=== PATIENT | female | born 1995 | race Caucasian/White ===

== ENCOUNTER 2024-10-17 21:49 | Inpatient (IN) | payer BC, OTHER ==
[2024-10-17] MEDS ORDERED: hydrALAZINE 20 MG/ML VIAL SLOW IVP PRN ×2 (22:05→23:03)
[2024-10-17 22:57] LABS: Fetal Membranes Rupture RUPTURE DETECTED (No Rupture)
[2024-10-17] MEDS ORDERED: Ondansetron PF 4 MG/2 ML Vial IVP PRN (23:03)
[2024-10-17] MEDS ORDERED: Methylergonovine 0.2 MG/ML VIAL IM PRN (23:03)
[2024-10-17] MEDS ORDERED: Famotidine/PF 20 mg/2ml Vial SLOW IVP PRN (23:03)
[2024-10-17] MEDS ORDERED: Bicitra 30 ML UDCUP PO PRN (23:03)
[2024-10-17] MEDS ORDERED: Carboprost 250 MCG/ML AMP IM PRN (23:03)
[2024-10-17] MEDS ORDERED: Acetaminophen 500 MG TAB PO PRN (23:03)
[2024-10-17] MEDS ORDERED: Azithromycin 500 MG in Sodium Chloride 0.9% 250 ML 250 ML IVPB SCH (23:15)
[2024-10-17] MEDS ORDERED: Oxytocin 30 units/NS 500 ML 500 ML IV SCH (23:15)
[2024-10-17 23:51] LABS: Hematocrit 34.0 % (34.9-44.5); Hemoglobin 11.2 g/dL (12.0-15.5); Mean Corpuscular Hemoglobin 28.6 pg (27.0-33.0); Mean Corpuscular Volume 86.7 fL (81.6-98.3); Platelet Count 252 10x3/uL (150-450); Red Blood Cell (RBC) Count 3.92 10x6/uL (3.90-5.03); White Blood Cell (WBC) Count 9.95 10x3/uL (3.5-10.5)
[2024-10-18 00:26] LABS: Hep B Surf Ag - L&D Non-Reactive S/CO (NonReactive)
[2024-10-18] MEDS ORDERED: Meperidine HCl/PF 25 MG (1 mL) VIAL SLOW IVP PRN (00:53)
[2024-10-18] MEDS ORDERED: Ondansetron PF 4 MG/2 ML Vial IVP PRN ×3 (00:53→04:25)
[2024-10-18] MEDS ORDERED: diphenhydrAMINE 50 MG/ML VIAL IVP PRN (00:53)
[2024-10-18] MEDS ORDERED: Communication Order-Pharmacy FS SCH (01:00)
[2024-10-18] MEDS ORDERED: Ketorolac Tromethamine 30 MG (1 mL) VIAL IVP SCH (01:00)
[2024-10-18 01:12] LABS: Syphilis Antibody Index 3.89 S/CO (<1.00 Non-Reactive)
[2024-10-18] MEDS: Dexamethasone 10 MG/ML VIAL ONE (02:10)
[2024-10-18] MEDS: Phenylephrine 40 MG/NS 250 ML 250 ML ONE (02:10)
[2024-10-18] MEDS: Oxytocin 10 UNITS/ML VIAL ONE ×2 (02:10→02:11)
[2024-10-18] MEDS: Ondansetron PF 4 MG/2 ML Vial ONE (02:10)
[2024-10-18 02:12] LABS: Syphilis Titer 1:1 Titer (Nonreactive)
[2024-10-18] MEDS: Ketorolac Tromethamine 30 MG (1 mL) VIAL IVP PRN ×2 (03:04→11:37)
[2024-10-18] MEDS ORDERED: Lanolin Ointment 7 GM TUBE TOP PRN (04:25)
[2024-10-18] MEDS ORDERED: Boostrix 0.5 ML (Tdap) VIAL (>/=7 yrs of age) IM ONE (04:25)
[2024-10-18] MEDS ORDERED: Methylergonovine 0.2 MG/ML VIAL IM PRN (04:25)
[2024-10-18] MEDS ORDERED: hydrALAZINE 20 MG/ML VIAL SLOW IVP PRN (04:25)
[2024-10-18] MEDS ORDERED: Simethicone Chewable 80 MG TAB PO PRN (04:25)
[2024-10-18] MEDS ORDERED: Oxytocin 30 units/NS 500 ML 500 ML IV SCH (04:25)
[2024-10-18] MEDS ORDERED: diphenhydrAMINE 25 MG CAP PO PRN (04:25)
[2024-10-18] MEDS ORDERED: Bisacodyl 10 MG SUPP PR PRN (04:25)
[2024-10-18 06:46] VITALS: BMI 32.5
[2024-10-18] MEDS: HYDROcodone/Acetaminophen 5/325 mg Tablet PO PRN (14:12)
[2024-10-18] MEDS: Ibuprofen 800 MG TAB PO SCH (20:53)
[2024-10-18] MEDS ORDERED: Ibuprofen 800 MG TAB PO SCH (21:00)
[2024-10-19] MEDS: Ibuprofen 800 MG TAB PO SCH (03:55)
[2024-10-19 06:43] LABS: Hematocrit 32.1 % (34.9-44.5); Hemoglobin 10.4 g/dL (12.0-15.5); Mean Corpuscular Hemoglobin 28.5 pg (27.0-33.0); Mean Corpuscular Volume 87.9 fL (81.6-98.3); Platelet Count 215 10x3/uL (150-450); Red Blood Cell (RBC) Count 3.65 10x6/uL (3.90-5.03); White Blood Cell (WBC) Count 10.14 10x3/uL (3.5-10.5)
[2024-10-21] MEDS: HYDROcodone/Acetaminophen 5/325 mg Tablet PO PRN (01:26)
[2024-10-21 07:35] VITALS: BP 103/64; TEMP 98.3
== END 2024-10-21 16:50 | disposition home or self-care (01) | DRG 787 ==
LOC: CSHLD/OP 21:49 → CSHLD 23:06 → EEVIPCON 23:06 → CSHPP 10-18 04:05
PROVIDERS: ADMIT Obstetrics & Gynecology; ATTEND Obstetrics & Gynecology
PROC: 10D00Z1 Extraction of Products of Conception, Low, Open Approach (ICD-10-PCS; principal; 2024-10-18)
PROC: 4A1HXCZ Monitoring of Products of Conception, Cardiac Rate, External Approach (ICD-10-PCS; 2024-10-18)
DX: O34.211 Maternal care for low transverse scar from previous cesarean delivery (principal); O98.42 Viral hepatitis complicating childbirth; O99.334 Smoking (tobacco) complicating childbirth; O99.824 Streptococcus B carrier state complicating childbirth; F17.290 Nicotine dependence, other tobacco product, uncomplicated; B19.20 Unspecified viral hepatitis C without hepatic coma; O69.81X0 Labor and delivery complicated by cord around neck, without compression, not applicable or unspecified; Z3A.39 39 weeks gestation of pregnancy; Z37.0 Single live birth
CPT/HCPCS: 36415; 51702; 84112; 85027; 86593; 86780; 86850; 86900; 86901; 87340; 99285; J1100; J1885; J2274; J2405; J2590; J3010

== ENCOUNTER 2024-10-22 06:21 | Emergency (ER) | payer BC, OTHER ==
[2024-10-22] MEDS ORDERED: Mineral Oil ENEMA ONE ×2 (06:38→07:54)
== END 2024-10-22 08:18 ==
LOC: CSHERS 06:21
DX: K59.00 Constipation, unspecified (principal)
CPT/HCPCS: 99283